=== PATIENT | female | born 1945 | race Caucasian/White ===

== ENCOUNTER 2017-09-23 09:17 | Day surgery (SDC) | payer OTHER ==
[~2017-09-23 09:17] MED LIST: NS 1000 ML 1,000 ML ONE
[2017-09-23] MEDS ORDERED: TETRACAINE 0.5% OPHTH 1 DOSE AFFEYE ONE ×2 (10:04→12:52)
[2017-09-23] MEDS ORDERED: VIGAMOX 0.5% OPHTH 1 DOSE AFFEYE ONE ×5 (10:05→13:27)
[2017-09-23] MEDS ORDERED: PROLENSA OPHTH 1 DOSE AFFEYE ONE (10:16)
[2017-09-23] MEDS ORDERED: ALPHAGAN-P OPHTH 1 DOSE AFFEYE ONE (10:17)
[2017-09-23] MEDS ORDERED: CYCLOGYL 1% OPHTH 1 DOSE OP ONE ×3 (10:18→10:24)
[2017-09-23] MEDS ORDERED: AK-DILATE 2.5% OPHTH 1 DOSE OP ONE ×3 (10:19→10:25)
[2017-09-23] MEDS ORDERED: MYDRIACIL OPHTH 1 DOSE AFFEYE ONE ×3 (10:20→10:26)
[2017-09-23] MEDS ORDERED: BETADINE OPHTH SOLN 5% EACHEYE ONE (12:52)
[2017-09-23] MEDS ORDERED: DUOVISC IO ONE (13:16)
[2017-09-23] MEDS ORDERED: ADRENALINE CHL INJ IJ ONE (13:16)
[2017-09-23] MEDS ORDERED: XYLOCAINE-MPF 1% IJ ONE (13:16)
[2017-09-23] MEDS ORDERED: BSS OPHTH (PLAIN) 500 ML with VANCOMYCIN HCL 500 MG VIAL 25 MG, ADRENALINE CHL INJ 1 MG IR ONE ×3 (13:16)
[2017-09-23] MEDS ORDERED: VERSED ONE (13:53)
[2017-09-23 16:40] VITALS: BP 139/80
== END 2017-09-23 13:50 | disposition home or self-care (01) ==
LOC: SURG1 09:17
PROVIDERS: ATTEND Ophthalmology
PROC: 08DK3ZZ Extraction of Left Lens, Percutaneous Approach (ICD-10-PCS; principal; 2017-09-23 16:15)
PROC: 08RK3JZ Replacement of Left Lens with Synthetic Substitute, Percutaneous Approach (ICD-10-PCS; principal; 2017-09-23 16:15)
DX: H25.12 Age-related nuclear cataract, left eye (principal); H25.012 Cortical age-related cataract, left eye
CPT/HCPCS: 99100; A4217; J0170; J2250; J3370

== ENCOUNTER 2017-10-07 08:58 | Day surgery (SDC) | payer OTHER ==
[2017-10-07] MEDS ORDERED: TETRACAINE 0.5% OPHTH 1 DOSE AFFEYE ONE ×3 (09:02→13:02)
[2017-10-07] MEDS ORDERED: VIGAMOX 0.5% OPHTH 1 DOSE AFFEYE ONE ×5 (09:05→13:15)
[2017-10-07] MEDS ORDERED: NS 500 ML IV 500 ML IV ONE (09:14)
[2017-10-07] MEDS ORDERED: PROLENSA OPHTH 1 DOSE AFFEYE ONE (09:16)
[2017-10-07] MEDS ORDERED: ALPHAGAN-P OPHTH 1 DOSE AFFEYE ONE (09:18)
[2017-10-07] MEDS ORDERED: CYCLOGYL 1% OPHTH 1 DOSE OP ONE ×4 (09:20→09:33)
[2017-10-07] MEDS ORDERED: AK-DILATE 2.5% OPHTH 1 DOSE OP ONE ×4 (09:20→09:33)
[2017-10-07] MEDS ORDERED: MYDRIACIL OPHTH 1 DOSE AFFEYE ONE ×4 (09:20→09:33)
[2017-10-07] MEDS ORDERED: VERSED ONE (09:21)
[2017-10-07] MEDS ORDERED: BETADINE OPHTH SOLN 5% EACHEYE ONE (12:56)
[2017-10-07] MEDS ORDERED: BSS OPHTH (PLAIN) 500 ML with VANCOMYCIN HCL 500 MG VIAL 25 MG, ADRENALINE CHL INJ 1 MG IR ONE ×3 (13:02)
[2017-10-07] MEDS ORDERED: XYLOCAINE-MPF 1% IJ ONE (13:02)
[2017-10-07] MEDS ORDERED: ADRENALINE CHL INJ IJ ONE (13:02)
[2017-10-07] MEDS ORDERED: DUOVISC IO ONE (13:02)
[2017-10-07 16:02] VITALS: BP 149/73
== END 2017-10-07 13:38 | disposition home or self-care (01) ==
LOC: SURG1 08:58
PROVIDERS: ATTEND Ophthalmology
PROC: 08DJ3ZZ Extraction of Right Lens, Percutaneous Approach (ICD-10-PCS; principal; 2017-10-07 15:00)
PROC: 08RJ3JZ Replacement of Right Lens with Synthetic Substitute, Percutaneous Approach (ICD-10-PCS; principal; 2017-10-07 15:00)
DX: H25.11 Age-related nuclear cataract, right eye (principal); H25.011 Cortical age-related cataract, right eye
CPT/HCPCS: 99100; A4217; J0170; J2250; J3370

== ENCOUNTER → 2017-11-19 | Outpatient (CLI) | payer OTHER | LOC: LAB 08:44 | PROVIDERS: ATTEND Internal Medicine Gastroenterology | DX: K64.0 First degree hemorrhoids (principal) | CPT/HCPCS: 82274 ==